=== PATIENT | male | born 1945 | race Caucasian/White ===

== ENCOUNTER 2023-07-09 11:30 | Emergency (ER) | payer OTHER, SELFPAY ==
[2023-07-09 11:47] VITALS: BP 109/61
--- NOTE | 2023-07-09 12:19 | ED.GENMED ---
History of Present Illness
General
Chief Complaint: Male Genito-Urinary Symptoms
Source: patient and family
Exam Limitations: clinical condition
Time Seen by Provider: 07/09/23 11:50
Travel History
Have you had any contact with someone who has COVID-19?: No
Do you have any symptoms of coronavirus? Fever > 100 degrees, chills, cough, shortness of breath, sore throat, loss of taste or smell, muscle aches, or headache?: No
History of Present Illness
History of Present Illness:
78-year-old male with a history of stage IV colon cancer on hospice who presents for Valderrama catheter placement. The patient typically performs his own catheterization but he has been too weak to perform it. The hospice nurse tried to place a Valderrama
but was unable to pass it. The patient is due for his dose of morphine. There is no other complaints that are new. Family request Valderrama catheter and discharge
Past History
Past History
ED Past Medical History: Cancer (colon stage IV) and HTN
ED Past Surgical History: Bowel resection
Social History
Tobacco: Non-smoker
Personal:
Living: with family
Phy Exam
Physical Exam
Physical Exam:
CONSTITUTIONAL Vital signs reviewed, Patient alert. Frail, cachectic, cough noted on exam
HEAD atraumatic, normocephalic.
EYES eyelids normal to inspection, Extraocular muscles intact, Conjunctiva normal, Sclera normal.
NECK normal range of motion, Trachea midline, no jugular venous distention.
RESP no respiratory distress
UPPER EXTREMITY Gross Range of motion normal, gross motor strength normal
LOWER EXTREMITY Gross range of motion normal, Gross motor strength normal
NEURO No focal motor deficits include
Course
Orders/Labs/Results
Orders:
Orders
07/09/23 12:17
Morphine Sulfate [Roxanol Oral Concentrate] 5 mg PO NOW STA
07/09/23 12:18
Lidocaine 2% [Lidocaine Uro-Jet 2%] 2 syringe .ROUTE .STK-MED ONE
07/09/23 12:26
Lidocaine 2% [Lidocaine Uro-Jet 2%] 2 syringe TOPICAL NOW STA
07/09/23 12:34
Morphine Sulfate [Morphine Oral Solution] 5 mg PO NOW STA
Vital Signs
Initial and Last Documented VS:
Initial Vital Signs
Temp Pulse Resp BP Pulse Ox
98.3 F 58 16 109/61 89
07/09/23 11:47 07/09/23 11:47 07/09/23 11:47 07/09/23 11:47 07/09/23 11:47
Last Documented Vital Signs
Temp Pulse Resp BP Pulse Ox
98.3 F 58 16 109/61 89
07/09/23 11:47 07/09/23 11:47 07/09/23 11:47 07/09/23 11:47 07/09/23 11:47
MDM/Problems Addressed
MDM/Problems Addressed:
Bladder dysfunction, metastatic cancer, self-catheterization
Chronic conditions affecting care: Cancer
*Pulse Oximetry
Patient hypoxic: no
*Critical Care Note
Total Time (30-74mins, 75-104mins- exclusive of procedures): Not Applicable
Data Reviewed
Review of Other/Old Records Reveals: Discharge Summary (Prior discharge summary reviewed from 2018)
Prescriptions/Medications Considered But Not Given:
Considered antibiotics but the patient is comfort measures only
Patient Management
Escalation/DeEscalation of care consider admission/obs:
valderrama placed by RN, d/c with family. home hospice
ED Attending Note
-
Portions of this chart may have been created with voice recognition software.� Occasional wrong word or��sound alike� substitutions may have occurred due to the inherent limitations of voice recognition software.
Discharge Plan
Departure
Patient Disposition: Home (Routine Discharge)
Date of Disposition: 07/09/23
Time of Disposition: 13:21
Patient with high blood pressure during this ER visit?: No
Discharge Problem:
Urinary bladder neurogenic dysfunction
Instructions: How to Care for Your Valderrama Catheter, Male
Prescriptions:
No Action
loperamide 2 MG capsule
2 mg PO QID PRN (Reason: diarrhea)
levothyroxine 50 MCG tablet
50 mcg PO DAILY
multivitamin [Daily Multiple] 1 EACH tablet
1 ea PO DAILY
citalopram 10 MG tablet
10 mg PO DAILY
ferrous sulfate [iron] 325 MG tablet
325 mg PO DAILY
cholecalciferol (vitamin D3) 1,000 UNITS tablet
5,000 units PO DAILY
lactobacillus combination no.4 [Senior Probiotic] 1 EACH capsule
1 ea PO DAILY
coQ10 (ubiquinol) 100 MG capsule
100 mg PO DAILY
wheat dextrin-L.acid-aspartame [Fiber With Probiotic] 360 GM powder
360 gm PO DAILY
Krill Oil
1 tab PO DAILY
levofloxacin 500 MG tablet
500 mg PO DAILY Qty: 11 0RF
cefdinir 300 MG capsule
300 mg PO BID Qty: 14 0RF
Referrals:
Selam Michel MD [Family Provider] -
Interventions
Interventions:
*Risk Screen - Suicide Last Done: 07/09/23 11:47
*General Assessment Last Done: 07/09/23 11:47
*Neglect/Abuse Screening Last Done: 07/09/23 11:47
ED- Fall Risk Assessment Last Done: 07/09/23 12:30
*ED COVID-19 Vaccine History Last Done: 07/09/23 12:29
ED-Male Genitourinary Assessment Last Done: 07/09/23 12:31
[2023-07-09] MEDS: LIDOCAINE URO-JET 2% 2 SYRINGE TOPICAL (12:26)
[2023-07-09 12:30] VITALS: BMI 19.2
[2023-07-09] MEDS: MORPHINE ORAL SOLUTION 5 MG PO (12:43)
== END 2023-07-09 14:18 | disposition home or self-care (01) ==
LOC: EMR 11:30
PROVIDERS: EMERGENCY PHYSICIAN Emergency Medicine; FAMILY PHYSICIAN Internal Medicine
DX: N31.9 Neuromuscular dysfunction of bladder, unspecified (principal); I10 Essential (primary) hypertension; Z85.038 Personal history of other malignant neoplasm of large intestine
CPT/HCPCS: 99283